=== PATIENT | female | born 1985 | race Caucasian/White ===

== ENCOUNTER 2021-09-27 10:41 | Emergency (ER) | payer MEDICAID, BC ==
[~2021-09-27] VITALS: Ht 157.5 cm; Wt 59.0 kg
[2021-09-27] MEDS ORDERED: ATOM80CA PO (10:59)
[2021-09-27] MEDS ORDERED: METH-807 PO (10:59)
[2021-09-27] MEDS ORDERED: SERT100T PO (10:59)
[2021-09-27] MEDS ORDERED: QUET100T PO (10:59)
[2021-09-27] MEDS ORDERED: ROPI2TAB7 PO (10:59)
[2021-09-27] MEDS ORDERED: GABA600T12 PO (10:59)
[2021-09-27] MEDS ORDERED: SUCR1TAB PO (10:59)
[2021-09-27] MEDS ORDERED: IV NORMAL SALINE 1000 ML BAG IV ONE (11:00)
[2021-09-27] MEDS ORDERED: LOPERAMIDE HCL 2 MG CAPSULE PO ONE (11:00)
[2021-09-27] MEDS ORDERED: ONDANSETRON 4 MG/2 ML VIAL IV ONE (11:00)
[2021-09-27] MEDS ORDERED: PANTOPRAZOLE SODIUM 40 MG VIAL IV ONE (11:00)
[2021-09-27 11:21] LABS: HEMATOCRIT 37.6 % (31.2-41.9); MEAN CORPUSCULAR HEMOGLOBIN 30.6 uug (24.7-32.8); MEAN CORPUSCULAR VOLUME 89.5 fL (75.5-95.3); PLATELET COUNT (AUTO) 248 K/uL (179-408)
[2021-09-27] MEDS ORDERED: PANTOPRAZOLE SODIUM 40 MG VIAL ONE (11:23)
[2021-09-27] MEDS ORDERED: LOPERAMIDE HCL 2 MG CAPSULE ONE (11:23)
[2021-09-27 11:24] LABS: CARBON DIOXIDE 27 mmol/L (21-32); CHLORIDE 106 mmol/L (98-107); CREATININE 0.7 mg/dL (0.6-1.3); GLUCOSE 86 mg/dL (74-106); POTASSIUM 3.7 mmol/L (3.5-5.1); UREA NITROGEN, BLOOD 9 mg/dL (7-18)
[2021-09-27] MEDS ORDERED: ONDANSETRON 4 MG/2 ML VIAL ONE (11:24)
[2021-09-27 11:35] LABS: ALANINE AMINOTRANSFERASE 14 U/L (14-59); ALKALINE PHOSPHATASE 91 U/L (50-136); ASPARTATE AMINOTRANSFERASE 15 U/L (15-37); BILIRUBIN,DIRECT 0.1 mg/dL (0.0-0.2); BILIRUBIN,TOTAL 0.2 mg/dL (0.2-1.0); LIPASE 166 U/L (73-393); TOTAL PROTEIN, SERUM 6.6 g/dL (6.4-8.2)
[2021-09-27] MEDS ORDERED: ONDA4TAB11 PO (12:29)
--- NOTE | 2021-09-27 13:03 | NUR ---
PT WAS D/C'd TO HOME. D/C INSTRUCTIONS GIVEN TO THE PT BY DR YEE.
[2021-09-27 13:05] VITALS: BP 129/78
== END 2021-09-27 13:06 | disposition home or self-care (01) ==
LOC: ER 10:49
DX: R19.7 Diarrhea, unspecified (principal); K21.9 Gastro-esophageal reflux disease without esophagitis; F32.A Depression, unspecified; F90.9 Attention-deficit hyperactivity disorder, unspecified type; F41.9 Anxiety disorder, unspecified; Z79.899 Other long term (current) drug therapy
CPT/HCPCS: 36415; 80048; 80076; 83690; 84702; 85025; 86625; 87015; 87046; 87427; 87493; 87899; 89055; 96361; 96374; 96375; 99284; C9113; J2405; A4663

== ENCOUNTER 2021-10-03 21:36 | Emergency (ER) | payer BC, OTHER ==
[~2021-10-03] VITALS: Ht 157.5 cm; Wt 59.0 kg
[~2021-10-03 21:36] MED LIST: ATOM80CA PO; GABA600T12 PO; METH-807 PO; ONDA4TAB11 PO; QUET100T PO; ROPI2TAB7 PO; SERT100T PO; SUCR1TAB PO
--- NOTE | 2021-10-03 21:40 | NUR ---
PT AMBULATED TO ER STEADY GAIT, C/O DIARRHEA X4 AND BACK PAIN SINCE THIS AM. PT A/O X4, NO SOB OR LABORED BREATHING. AFEBRILE. DENIES CP/PRESSURE. NO N/V.
--- NOTE | 2021-10-03 22:04 | NUR ---
DR. MCQUEEN AT BEDSIDE, MSE IN PROGRESS.
[2021-10-03] MEDS ORDERED: IBUPROFEN 600 MG TABLET PO ONE (22:15)
[2021-10-03] MEDS ORDERED: IBUPROFEN 600 MG TABLET ONE (22:18)
--- NOTE | 2021-10-03 22:23 | NUR ---
XRAY AT BEDSIDE.
[2021-10-03 22:30] LABS: *BLOOD, URINE NEGATIVE (NEGATIVE); *CLARITY,URINE CLEAR (CLEAR); *COLOR,URINE AMBER (YELLOW); *KETONES,URINE TRACE (NEGATIVE); *UROBILINOGEN,URINE 0.2 E.U./dl (NORMAL); LEUKOCYTE ESTERASE ,URINE NEGATIVE (NEGATIVE); NITRITE, URINE NEGATIVE (NEGATIVE); PH,URINE 5.5 (5.0-8.0); UGLUCOSE NEGATIVE (NEGATIVE)
[2021-10-03 22:31] LABS: *URINE HCG, QUAL NEGATIVE (NEGATIVE)
[2021-10-03 22:32] LABS: *BILIRUBIN,URIN 2+ (NEGATIVE)
--- NOTE | 2021-10-03 22:34 | NUR ---
Lab at bedside.
[2021-10-03 22:56] LABS: HEMATOCRIT 39.8 % (31.2-41.9); MEAN CORPUSCULAR HEMOGLOBIN 30.4 uug (24.7-32.8); MEAN CORPUSCULAR VOLUME 89.3 fL (75.5-95.3); PLATELET COUNT (AUTO) 269 K/uL (179-408)
[2021-10-03 23:00] LABS: CREATININE 0.8 mg/dL (0.6-1.3); POTASSIUM 3.7 mmol/L (3.5-5.1)
[2021-10-03] MEDS ORDERED: BISM-120 PO (23:48)
[2021-10-03] MEDS ORDERED: IBUP-1955 PO (23:48)
--- NOTE | 2021-10-03 23:55 | NUR ---
Patient discharged to sober living in stable condition. Written and verbal after care instructions given. Patient verbalizes understanding of instructions. Stressed follow up or return to ER for worsening s/s. Steady gait. Denies any pain/discomfort upon discharged. Picked up by staff member in sober living.
[2021-10-03 23:57] VITALS: BP 136/86
[2021-10-04 01:16] LABS: BACTERIA,URINE FEW /HPF (NONE SEEN); RBC,URINE 0-3 /HPF (0-3); SQUAMOUS EPITHELIAL CELL,UR FEW /HPF (NONE SEEN); WBC,URINE 0-3 /HPF (0-3)
== END 2021-10-03 23:57 | disposition home or self-care (01) ==
LOC: ER 21:36
DX: R19.7 Diarrhea, unspecified (principal); R10.9 Unspecified abdominal pain; M54.9 Dorsalgia, unspecified; R00.0 Tachycardia, unspecified; K21.9 Gastro-esophageal reflux disease without esophagitis; F90.9 Attention-deficit hyperactivity disorder, unspecified type; F41.9 Anxiety disorder, unspecified; F32.A Depression, unspecified; Z87.442 Personal history of urinary calculi
CPT/HCPCS: 36415; 74021; 83735; 84703; 85025; 87086; 93005; A4663